=== PATIENT | female | born 2000 | race Hispanic/Latino ===

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

== ENCOUNTER 2018-01-04 22:06 | Inpatient (IN) | payer MEDICAID, OTHER ==
[~2018-01-04] VITALS: Ht 157.5 cm; Wt 55.3 kg
[~2018-01-04 22:06] MED LIST changes: -IBUP-2070 PO
[2018-01-04 22:31] LABS: APPEARANCE,URINE Cloudy (CLEAR); BILIRUBIN,URINE Negative (NEGATIVE); COLOR,URINE Yellow (YELLOW); GLUCOSE, URINE (UA) Negative (NEGATIVE); KETONES,URINE Trace mg/dL (NEGATIVE); LEUKOCYTE ESTERASE ,URINE Large (NEGATIVE); NITRATE,URINE Negative (NEGATIVE); OCCULT BLOOD,URINE Negative (NEGATIVE); PH,URINE 6.5 (5.0-8.0); PROTEIN,URINE Negative (NEGATIVE)
[2018-01-04 22:40] LABS: HCG,QUAL RESULT POSITIVE (NEGATIVE)
[2018-01-04 22:44] LABS: BACTERIA,URINE Many /HPF (None Seen); RBC,URINE None Seen /HPF (0-1)
[2018-01-04 22:48] LABS: AMPHET/METH SCREEN,URINE NEGATIVE (NEGATIVE); BARBITURATE SCREEN, URINE NEGATIVE (NEGATIVE); BENZODIAZEPINES SCREEN,URINE NEGATIVE (NEGATIVE); CANNABINOID SCREEN,URINE NEGATIVE (NEGATIVE); COCAINE SCREEN,URINE NEGATIVE (NEGATIVE); OPIATE SCREEN,URINE NEGATIVE (NEGATIVE); PHENCYCLIDINE SCREEN,URINE NEGATIVE (NEGATIVE)
[2018-01-04 23:02] LABS: BASOPHILS % (AUTO) 0.3 % (0.0-5.0); EOSINOPHILS % (AUTO) 0.1 % (0.0-8.0); HEMATOCRIT 23.7 % (36-48); LYMPHOCYTES % (AUTO) 11.9 % (21.0-51.0); MEAN CORPUSCULAR HGB CONC 33.1 g/dL (32.0-36.0); MEAN CORPUSCULAR VOLUME 72.4 fL (80-100); MONOCYTES % (AUTO) 8.6 % (3.0-13.0); NEUTROPHILS % (AUTO) 79.1 % (40.0-77.0); PLATELET COUNT (AUTO) 247 K/uL (130-400); RED BLOOD CELL COUNT(AUTO) 3.28 MIL/uL (4.00-5.50); RED CELL DISTRIBUTION WIDTH 16.8 % (11.0-15.5); WHITE BLOOD COUNT (AUTO) 8.1 K/uL (4.8-10.8)
[2018-01-04 23:16] LABS: ALBUMIN 2.3 g/dL (3.5-5.0); BILIRUBIN,TOTAL 0.4 mg/dL (0.2-1.0); CREATININE 0.6 mg/dL (0.5-1.5)
[2018-01-04 23:36] LABS: POTASSIUM 2.6 mmol/L (3.5-5.1)
[2018-01-04] MEDS ORDERED: NS-20 MEQ KCL 1000ML 1,000 ML IV ONE (23:55)
[2018-01-04] MEDS ORDERED: MAGNESIUM 2GM PREMIX 50ML 50 ML IV ONE (23:55)
[2018-01-04] MEDS ORDERED: CEFTRIAXONE SODIUM 1 GM ONE (23:55)
[2018-01-05] VITALS (7 sets, daily range): BP systolic 92–116; BP diastolic 48–68
[2018-01-05] MEDS: DEXTROSE 5 %-0.45 % NACL 1,000 ML IV SCH ×3 (06:00→18:29)
[2018-01-05] MEDS: AMPICILLIN 2GM+NS 100ML 100 ML IV SCH ×3 (06:38→18:28)
[2018-01-06] MEDS: AMPICILLIN 2GM+NS 100ML 100 ML IV SCH ×2 (00:28→06:18)
[2018-01-06 04:00] VITALS: BP 97/53
[2018-01-06] MEDS: DEXTROSE 5 %-0.45 % NACL 1,000 ML IV SCH (05:08)
[2018-01-06 08:01] VITALS: BP 96/54
== END 2018-01-06 11:25 | disposition home or self-care (01) | DRG 566 ==
LOC: EDH 22:06 → EDHIP 22:07 → OBSVTOIN 22:07 → WSH 01-05 00:55
PROVIDERS: ADMIT Obstetrics & Gynecology; ATTEND Obstetrics & Gynecology
PROC: 3E0234Z Introduction of Serum, Toxoid and Vaccine into Muscle, Percutaneous Approach (ICD-10-PCS; principal; 2018-01-05)
DX: O23.02 Infections of kidney in pregnancy, second trimester (principal); Z23 Encounter for immunization; Z3A.19 19 weeks gestation of pregnancy
CPT/HCPCS: 36415; 76805; 80053; 80305; 81001; 81025; 83690; 83735; 84132; 84702; 85025; 93005; G0378; J0290; J0696; J3475; J3480; Q2038

== ENCOUNTER 2020-03-25 15:29 | Inpatient (IN) | payer MEDICAID ==
[~2020-03-25] VITALS: Ht 157.5 cm; Wt 66.7 kg
[2020-03-25] MEDS ORDERED: OXYTOCIN-LR 20 UNITS/1000 ML 1,000 ML IV SCH (17:00)
[2020-03-25] MEDS ORDERED: LACTATED RINGERS 500 ML 500 ML IV PRN (17:00)
[2020-03-25] MEDS ORDERED: ROPIVACAINE 0.2% 100ML VIAL 100 ML EP SCH (17:00)
[2020-03-25] MEDS ORDERED: EPHEDRINE SULFATE 50 MG/ML AMPULE IVP PRN (17:00)
[2020-03-25] MEDS ORDERED: MEPERIDINE-PF 50 MG/ML SYG IVP PRN (17:00)
[2020-03-25] MEDS ORDERED: PROMETHAZINE HCL 25 MG/ML 1ML AMPULE IM PRN (17:00)
[2020-03-25] MEDS ORDERED: NALOXONE HCL 0.4 MG/1 ML ML IV PRN (17:00)
[2020-03-25 17:07] LABS: APPEARANCE,URINE Cloudy (CLEAR); BILIRUBIN,URINE Negative (NEGATIVE); COLOR,URINE Yellow (YELLOW); GLUCOSE, URINE (UA) Negative (NEGATIVE); KETONES,URINE Trace mg/dL (NEGATIVE); LEUKOCYTE ESTERASE ,URINE Small (NEGATIVE); NITRATE,URINE Negative (NEGATIVE); OCCULT BLOOD,URINE Large (NEGATIVE); PH,URINE 6.5 (5.0-8.0); PROTEIN,URINE Negative (NEGATIVE)
[2020-03-25 17:13] LABS: MEAN CORPUSCULAR HEMOGLOBIN 22.8 pg (27.0-33.0); MEAN CORPUSCULAR HGB CONC 29.7 g/dL (32.0-36.0); MEAN CORPUSCULAR VOLUME 76.7 fL (80-100); PLATELET COUNT (AUTO) 194 K/uL (130-400); RED BLOOD CELL COUNT(AUTO) 4.04 MIL/uL (4.00-5.50); RED CELL DISTRIBUTION WIDTH 15.7 % (11.0-15.5); WHITE BLOOD COUNT (AUTO) 6.2 K/uL (4.8-10.8)
[2020-03-25 17:15] LABS: AMPHET/METH SCREEN,URINE NEGATIVE (NEGATIVE); BARBITURATE SCREEN, URINE NEGATIVE (NEGATIVE); BENZODIAZEPINES SCREEN,URINE NEGATIVE (NEGATIVE); CANNABINOID SCREEN,URINE NEGATIVE (NEGATIVE); COCAINE SCREEN,URINE NEGATIVE (NEGATIVE); OPIATE SCREEN,URINE NEGATIVE (NEGATIVE); PHENCYCLIDINE SCREEN,URINE NEGATIVE (NEGATIVE)
[2020-03-25 17:19] LABS: BACTERIA,URINE Few /HPF (None Seen); MUCUS,URINE Few LPF (None Seen); RBC,URINE 0-1 /HPF (0-1); SQUAMOUS EPITHELIAL CELL,UR Moderate /HPF (0-2); WBC,URINE 0-1 /HPF (0-1)
[2020-03-25] MEDS: LACTATED RINGERS 1000ML 1,000 ML IV PRN ×2 (17:30→23:48)
[2020-03-26] MEDS ORDERED: LIDOCAINE HCL 1% 20 ML VIAL INJ PRN (08:30)
[2020-03-26] MEDS ORDERED: OXYTOCIN-LR 20 UNITS/1000 ML 1,000 ML IV SCH ×2 (08:30→10:30)
[2020-03-26] MEDS: LACTATED RINGERS 1000ML 1,000 ML IV PRN (08:38)
[2020-03-26] MEDS ORDERED: MISOPROSTOL 100 MCG TABLET ONE (10:09)
[2020-03-26] MEDS ORDERED: ACETAMINOPHEN-CODEINE 300/30MG TAB PO PRN (10:30)
[2020-03-26] MEDS ORDERED: DIPH,PERTUSS(ACELL),TET VAC/PF 0.5 ML VIAL IM PRN (10:30)
[2020-03-26] MEDS ORDERED: MEASLES/MUMPS/RUBELLA VACCINE, LIVE 0.5 ML/VIAL SQ PRN (10:30)
[2020-03-26] MEDS ORDERED: LANOLIN 30GM OINTMENT TP PRN (10:30)
[2020-03-26] MEDS ORDERED: BENZOCAINE/LANOLIN/ALOE VERA 60 ML AEROSOL TP PRN (10:30)
[2020-03-26] MEDS ORDERED: MISOPROSTOL 200 MCG TABLET VG SCH ×2 (10:30→10:45)
[2020-03-26] MEDS ORDERED: WITCH HAZEL 1 PAD TP PRN (10:30)
[2020-03-26] MEDS ORDERED: ACETAMINOPHEN 325 MG TAB PO PRN (10:30)
--- NOTE | 2020-03-26 12:15 | NUR ---
RECOVERY QBL - 73ML Addendum: 03/26/20 at 1304 by BRIDGET BINGHAM RN Amended: Links added.
[2020-03-26] MEDS ORDERED: PREN1TAB26 PO (12:38)
[2020-03-26 12:50] VITALS: BP 118/73
--- NOTE | 2020-03-26 14:30 | NUR ---
SW NOTE: Referral for substance use during ; 's UDS is pending. SW will f/u.
[2020-03-26 16:19] VITALS: BP 98/63
[2020-03-26] MEDS ORDERED: FLU VACC QS2020-21(6MOS UP)/PF 60 MCG/0.5 ML ML IM ONE (18:15)
[2020-03-26] MEDS ORDERED: FLU VACC QS2020-21(6MOS UP)/PF 60 MCG/0.5 ML ML IM SCH (18:45)
[2020-03-26 19:32] VITALS: BP 102/64
[2020-03-26] MEDS: IBUPROFEN 600 MG TABLET PO PRN (19:59)
[2020-03-26] MEDS: DOCUSATE SODIUM 100 MG CAP PO SCH (20:00)
[2020-03-26 23:39] VITALS: BP 101/67
[2020-03-27] MEDS: DOCUSATE SODIUM 100 MG CAP PO SCH ×2 (01:27→09:19)
[2020-03-27 03:46] VITALS: BP 91/56
[2020-03-27 06:34] LABS: HEMATOCRIT 28.4 % (36-48); MEAN CORPUSCULAR HGB CONC 29.9 g/dL (32.0-36.0); MEAN CORPUSCULAR VOLUME 76.8 fL (80-100); RED BLOOD CELL COUNT(AUTO) 3.7 MIL/uL (4.00-5.50); RED CELL DISTRIBUTION WIDTH 15.9 % (11.0-15.5); WHITE BLOOD COUNT (AUTO) 8.4 K/uL (4.8-10.8)
[2020-03-27 07:16] LABS: HEPATITIS Bs ANTIGEN SCREEN P Negative (Negative)
[2020-03-27 07:27] VITALS: BP 113/75
--- NOTE | 2020-03-27 08:25 | NUR ---
CECILY NOTE-Referral for UDS at [facility]-Positive Cocaine on 03/06, 03/13 Pt's UDS on this admission is negative; BB's UDS also negative SW met with pt. who is awake, alert, oriented and cooperative. Pt. reports that this is her fifth , fourth delivery and has named BB Palomo Valdez. Other children are 4y, 2y, 1y reportedly current with immunizations and being cared for by maternal grandmother. Pt. is not employed outside the home and resides with her mother whom she reports as a strong support system. Pt. reports that she and FOB/Torrey Valdez are no longer together but remain amicable. Pt. denies any history of PPD with prior pregnancies and verbalizes an awareness/understanding of PPD and when to seek out medical attention if needed. Pt. denies any history of depression, anxiety or any other mental illness. Pt. denies any history of abuse/domestic violence. Pt. denies any use of etoh, tobacco or illicit substances but verbalizes an awareness of positive UDS for cocaine at OB's office. Pt. denies any past or current use of cocaine, states she is unaware of how she could have tested positive. Pt. denies any history of CPS. SW informed pt. of mandated reporting; pt. verbalized an understanding and that she will remain cooperative. Pt.'s plans are to return to her mother's home post d/c. Pt. is Medicaid enrolled; WIC and [facility] [place] are pending with appointment scheduled for tomorrow. FOB to provide transportation home at d/c. Pt. verbalized no SS needs or concerns. Report made to [facility]; [facility] ID#[id number], Reference #[id number] Per [facility], due to negative UDS on both mother and this admission, case is assigned a P2 and will be followed up on post discharge and that pt. and may be discharged together when medically cleared. CECILY notified Gunjan/NAYE/Otto and Pt's primary nurse.
--- NOTE | 2020-03-27 09:15 | NUR ---
MARKETING STRATEGY MANAGER STATES PATIENT IS CLEARED AND OKAY TO DISCHARGE WITH BABY.
[2020-03-27] MEDS: IBUPROFEN 600 MG TABLET PO PRN (09:20)
[2020-03-27 11:17] VITALS: BP 107/57
--- NOTE | 2020-03-27 12:50 | NUR ---
PATIENT LEFT UNIT WITH BABY IN ARMS. PERSONAL VEHICLE USED FOR TRANSPORTATION, BABY SECURE IN CARSEAT. NO COMPLAINTS OR CONCERNS ADDRESSED FROM PATIENT ON DISCHARGE
--- NOTE | 2020-03-28 12:15 | NUR ---
CPS This worker received call from Roxanna Barrera/CPS monotype keyboard operator assigned to pt.; requested copy of UDS from [facility] office to be faxed. Copy faxed; Roxanna also requested copy of Meconium results when obtained. SW will follow up when results obtained.
== END 2020-03-27 12:50 | disposition home or self-care (01) | DRG 560 ==
LOC: OBSVTOIN 15:29 → LDH 15:29 → WSH 03-26 11:37
PROVIDERS: ADMIT Obstetrics & Gynecology; ATTEND Obstetrics & Gynecology
PROC: 10E0XZZ Delivery of Products of Conception, External Approach (ICD-10-PCS; principal; 2020-03-26)
PROC: 10907ZC Drainage of Amniotic Fluid, Therapeutic from Products of Conception, Via Natural or Artificial Opening (ICD-10-PCS; 2020-03-26)
PROC: 3E033VJ Introduction of Other Hormone into Peripheral Vein, Percutaneous Approach (ICD-10-PCS; 2020-03-26)
PROC: 3E0234Z Introduction of Serum, Toxoid and Vaccine into Muscle, Percutaneous Approach (ICD-10-PCS; 2020-03-26)
PROC: 3E0134Z Introduction of Serum, Toxoid and Vaccine into Subcutaneous Tissue, Percutaneous Approach (ICD-10-PCS; 2020-03-26)
PROC: 3E02340 Introduction of Influenza Vaccine into Muscle, Percutaneous Approach (ICD-10-PCS; 2020-03-26)
DX: O80 Encounter for full-term uncomplicated delivery (principal); Z3A.38 38 weeks gestation of pregnancy; Z37.0 Single live birth; Z23 Encounter for immunization
CPT/HCPCS: 36415; 80305; 81001; 85027; 86592; 86701; 86850; 86900; 86901; 87340; 87390; 90715; A4351; G0008; G0378; J2175; J2550; J2590; J7120; Q2035

== ENCOUNTER 2021-11-13 16:04 | Emergency (ER) | payer MEDICAID ==
[~2021-11-13] VITALS: Ht 154.9 cm; Wt 72.6 kg
[~2021-11-13 16:04] MED LIST changes: -PREN-196 PO; +PREN1TAB26 PO
[2021-11-13 16:25] LABS: APPEARANCE,URINE CLOUDY (CLEAR); BILIRUBIN,URINE NEGATIVE (NEGATIVE); COLOR,URINE YELLOW (YELLOW); GLUCOSE, URINE (UA) NEGATIVE (NEGATIVE); KETONES,URINE 5 mg/dL (NEGATIVE); LEUKOCYTE ESTERASE ,URINE MODERATE (NEGATIVE); NITRATE,URINE NEGATIVE (NEGATIVE); OCCULT BLOOD,URINE MODERATE (NEGATIVE); PROTEIN,URINE NEGATIVE (NEGATIVE); UROBILINOGEN,URINE 0.2 mg/dL (0.2-1.0)
[2021-11-13 16:28] LABS: HCG,QUALITATIVE URINE NEGATIVE (NEGATIVE)
[2021-11-13] MEDS ORDERED: PHEN-847 PO (16:55)
[2021-11-13] MEDS ORDERED: CEPH500B PO (16:55)
[2021-11-13 16:57] LABS: SQUAMOUS EPITHELIAL CELL,UR 30-50 /HPF (0-2)
[2021-11-13 16:59] LABS: BACTERIA,URINE Moderate /HPF (None Seen); MUCUS,URINE Few LPF (None Seen)
[2021-11-13 17:00] LABS: YEAST,URINE BUDDING Rare /HPF (None Seen)
[2021-11-13] MEDS ORDERED: PHENAZOPYRIDINE HCL 200 MG TABLET PO ONE (17:00)
[2021-11-13] MEDS ORDERED: CEFTRIAXONE 1G VIAL IM ONE (17:00)
[2021-11-13] MEDS ORDERED: LIDOCAINE PF 100MG/5ML (2%) SYRINGE 5ML ONE (17:10)
[2021-11-13] MEDS ORDERED: CEFTRIAXONE 1G VIAL ONE (17:11)
[2021-11-13] MEDS ORDERED: PHENAZOPYRIDINE HCL 200 MG TABLET ONE (17:11)
[2021-11-13 17:18] VITALS: BP 111/62
== END 2021-11-13 17:23 | disposition home or self-care (01) ==
LOC: EDH 16:04
DX: N39.0 Urinary tract infection, site not specified (principal); N64.4 Mastodynia
CPT/HCPCS: 99283; 87077; 87088; 87186; 81001; 81025; 96372; J3490; J0696; J2001

== ENCOUNTER 2023-12-30 11:26 | Emergency (ER) | payer SELFPAY ==
[~2023-12-30] VITALS: Ht 154.9 cm; Wt 76.7 kg
[~2023-12-30 11:26] MED LIST changes: +CEPH500B PO; +PHEN-847 PO
[2023-12-30 12:01] LABS: SARS-CoV-2, RNA, NAAT NEGATIVE SARS CoV-2 (NEGATIVE)
[2023-12-30 12:15] LABS: INFLUENZA TYPE A Negative For Type A (NEGATIVE); INFLUENZA TYPE B Negative For Type B (NEGATIVE)
[2023-12-30 12:27] LABS: RAPID GROUP A STREP negative (NEGATIVE)
[2023-12-30 12:31] LABS: ADD UA MICROSCOPIC YES; APPEARANCE,URINE CLOUDY (CLEAR); BILIRUBIN,URINE NEGATIVE (NEGATIVE); COLOR,URINE LIGHT-YELLOW (YELLOW); GLUCOSE, URINE (UA) NEGATIVE (NEGATIVE); KETONES,URINE NEGATIVE (NEGATIVE); LEUKOCYTE ESTERASE ,URINE NEGATIVE Leu/uL (NEGATIVE); NITRATE,URINE NEGATIVE (NEGATIVE); OCCULT BLOOD,URINE SMALL (NEGATIVE); PH,URINE 7.5 (5.0-8.0); PROTEIN,URINE NEGATIVE (NEGATIVE)
[2023-12-30 12:58] LABS: BACTERIA,URINE RARE /HPF (None Seen); RBC,URINE 0-1 /HPF (0-1); SQUAMOUS EPITHELIAL CELL,UR RARE /HPF (0-2)
[2023-12-30 14:03] VITALS: BP 121/74; PULSE 88; RESP 16; TEMP 98.8; O2SAT 100
== END 2023-12-30 14:08 | disposition home or self-care (01) ==
LOC: EDH 11:26
DX: B34.9 Viral infection, unspecified (principal); R07.0 Pain in throat; E66.9 Obesity, unspecified; Z20.822 Contact with and (suspected) exposure to COVID-19; Z79.899 Other long term (current) drug therapy; Z98.890 Other specified postprocedural states
CPT/HCPCS: 81001; 87635; 87804; 87880